=== PATIENT | female | born 1955 | race African-American/Black ===

== ENCOUNTER 2016-09-16 07:09 | Emergency (ER) | payer MEDICAID ==
[~2016-09-16] VITALS: Ht 165.1 cm; Wt 87.0 kg
[2016-09-16] MEDS ORDERED: IBUPROFEN 600MG TABLET PO STA (07:58)
[2016-09-16 08:04] LABS: CLARITY URINE CLEAR (CLEAR); COLOR URINE YELLOW (YELLOW); GLUCOSE URINE NEGATIVE (NEGATIVE); KETONES URINE NEGATIVE (NEGATIVE); LEUKOCYTE ESTERASE URINE TRACE (NEGATIVE); NITRITE URINE NEGATIVE (NEGATIVE); OCCULT BLOOD URINE NEGATIVE (NEGATIVE); PH URINE 6.5 (4.5-8.0); PROTEIN URINE NEGATIVE (NEGATIVE); SPECIFIC GRAVITY URINE 1.024 (1.005-1.030)
[2016-09-16 08:16] LABS: MUCUS URINE 2+ /lpf (< = 2+); SQUAMOUS EPITHELIAL CELL URINE 2+ /lpf (RARE/1+)
[2016-09-16 08:17] LABS: BACTERIA URINE TRACE; WBC URINE 0-2 /hpf (0-2)
[2016-09-16 08:33] LABS: EOSINOPHILS % 3.2 % (0.0-5.0); HEMATOCRIT. 41.6 % (36.0-48.0); HEMOGLOBIN. 13.9 g/dL (12.0-16.0); MEAN CORPUSCULAR HEMOGLOBIN 29.9 pg (28.0-32.0); MEAN CORPUSCULAR HGB CONC 33.4 g/dL (31.0-37.0); MEAN CORPUSCULAR VOLUME 89.5 fL (81.0-99.0); MEAN PLATELET VOLUME 9.2 fl (7.4-10.4); MONOCYTES % 9.1 % (2.0-8.0); NEUTROPHILS % 39.7 % (40.0-76.0); PLATELET 184 x1000/uL (130-400); RED BLOOD CELL COUNT 4.65 mill/uL (4.2-5.4); RED CELL DISTRIBUTION WIDTH 13.3 % (11.6-14.6); WHITE BLOOD COUNT 3.1 x1000/uL (4.5-11.0)
[2016-09-16 08:42] LABS: INR 1.1; PARTIAL THROMBOPLASTIN TIME 28.3 sec (24.0-34.0); PROTHROMBIN TIME 11.1 sec
[2016-09-16 08:47] LABS: ALANINE AMINOTRANSFERASE 24 IU/L (13-61); ALBUMIN 3.6 g/dL (3.4-5.0); ANION GAP 12; CALCIUM 8.8 mg/dL (8.5-10.1); CARBON DIOXIDE 30 mEq/L (21-32); CHLORIDE 105 mEq/L (98-107); INDEX HEMOLYSI 1 (1-3); INDEX ICTERIC 1 (1-4); INDEX LIPEMIC 1 (1-3); LIPASE 147 IU/L (73-393); UREA NITROGEN BLOOD 13 mg/dL (7-21); eGFR > 60 mL/min (>60)
[2016-09-16] MEDS ORDERED: KETOROLAC 30MG/ML VIAL IV ONE (09:30)
[2016-09-16] MEDS ORDERED: IOHEXOL-300 100 ML BOTTLE ONE (12:08)
[2016-09-16] MEDS ORDERED: SODIUM CHLORIDE 0.9% 10ML VIAL ONE (12:08)
[2016-09-16 13:14] VITALS: BP 132/76
== END 2016-09-16 13:24 | disposition home or self-care (01) ==
LOC: ER 08:28
DX: N39.0 Urinary tract infection, site not specified (principal); D25.9 Leiomyoma of uterus, unspecified; I10 Essential (primary) hypertension
CPT/HCPCS: 36415; 74177; 80053; 81001; 83690; 85025; 85610; 85730; 96374; 99285; A4216; J1885; Q9967; Z7610

== ENCOUNTER 2024-07-09 10:56 | Emergency (ER) | payer BC, MEDICAID, OTHER ==
[~2024-07-09] VITALS: Ht 165.1 cm; Wt 69.0 kg
[2024-07-09 10:59] VITALS: O2SAT 98
[2024-07-09] MEDS ORDERED: KEPP500 MT (13:09)
[2024-07-09 13:24] VITALS: BP 129/73; PULSE 84; RESP 17; TEMP 36.8; O2SAT 98
== END 2024-07-09 13:25 | disposition home or self-care (01) ==
LOC: ER 10:56
DX: R56.9 Unspecified convulsions (principal); F41.9 Anxiety disorder, unspecified; Z98.890 Other specified postprocedural states
CPT/HCPCS: 99281